=== PATIENT | male | born 1955 | race Caucasian/White ===

== ENCOUNTER 2019-10-28 11:58 | Inpatient (IN) | payer BC, SELFPAY ==
[~2019-10-28] VITALS: Ht 170.2 cm; Wt 71.2 kg
[2019-10-28 12:06] VITALS: BP 121/78
[2019-10-28] MEDS ORDERED: NACL 0.9% 1,000 ML IV ONE ×2 (12:30→15:25)
[2019-10-28] MEDS ORDERED: ONDANSETRON 4 MG/2 ML VIAL IVP ONE ×2 (12:30→15:25)
[2019-10-28 12:51] LABS: HEMATOCRIT 47.8 % (36-52); HEMOGLOBIN 16.7 g/dL (12.0-18.0); MEAN CORPUSCULAR HEMOGLOBIN 32 pg (27-31); MEAN CORPUSCULAR HGB CONC 35 g/dL (33-37); MEAN CORPUSCULAR VOLUME 92.7 fL (80-94); PLATELET COUNT (AUTO) 194 K/uL (140-450); RED BLOOD CELL COUNT(AUTO) 5.16 MIL/uL (4.20-6.10); RED CELL DISTRIBUTION WIDTH 13.4 % (11.6-13.7); WHITE BLOOD COUNT (AUTO) 18.6 K/uL (4.8-10.8)
[2019-10-28 13:04] LABS: ANION GAP 18.5 (8-16); CREATININE 1.6 mg/dL (0.6-1.3); POTASSIUM 3.5 mmol/L (3.5-5.1)
[2019-10-28 13:11] LABS: ALBUMIN 4.5 g/dL (3.4-5.0); TOTAL BILIRUBIN 2.1 mg/dL (0.0-1.0)
[2019-10-28 13:13] LABS: LYMPHOCYTES % (MANUAL) 5 % (20-46); MONOCYTES % (MANUAL) 2 % (5-12)
[2019-10-28] MEDS ORDERED: cefTRIAXone 1,000 MG VIAL ONE (15:11)
[2019-10-28] MEDS ORDERED: ACETAMINOPHEN 325 MG TAB PO PRN (17:10)
[2019-10-28] MEDS ORDERED: DOCUSATE SODIUM 100 MG GELCAP PO PRN (17:10)
[2019-10-28] MEDS ORDERED: MAG SULF 2000 MG/WATER PREMIX 50 ML IV PRN (17:10)
[2019-10-28] MEDS ORDERED: LORazepam 2 MG/ML VIAL IVP PRN (17:10)
[2019-10-28] MEDS ORDERED: MORPHINE SULFATE 2 MG/ML SYR IVP PRN (17:10)
[2019-10-28] MEDS ORDERED: ZOLPIDEM 10 MG TAB PO PRN (17:10)
[2019-10-28] MEDS ORDERED: POTASSIUM CHLORIDE 10 MEQ TABER PO PRN (17:10)
[2019-10-28] MEDS: PANTOPRAZOLE 40 MG INJ VIAL IVP SCH (17:35)
[2019-10-28 18:08] LABS: APPEARANCE,URINE SL CLOUDY (CLEAR); BILIRUBIN,URINE NEGATIVE (NEGATIVE); BLOOD, URINE TRACE-I (NEGATIVE); COLOR,URINE YELLOW (YELLOW); LEUKOCYTE ESTERASE ,URINE NEGATIVE (NEGATIVE); NITRITE, URINE NEGATIVE (NEGATIVE); UGLUCOSE 1+ (NEGATIVE)
[2019-10-28] MEDS ORDERED: DEXTROSE 50% 50 ML SYR IVP PRN (18:10)
[2019-10-28 18:32] LABS: OTHER CASTS, URINE WBC CASTS 1+ /LPF (None Seen); RBC,URINE 0-5 /HPF (0-5)
[2019-10-28] MEDS: INSULIN LISPRO SLIDING SCALE 100 UNITS/ML VIAL SUBQ PRN (21:36)
[2019-10-28] MEDS: BLOOD GLUCOSE MONITORING 1 DEV DEV FS SCH (21:36)
[2019-10-28] MEDS: DEXT 5% /NACL 0.9% 1,000 ML IV SCH (21:37)
[2019-10-28 21:38] VITALS: BP 122/73
[2019-10-28] MEDS: ONDANSETRON 4 MG/2 ML VIAL IVP PRN (21:41)
[2019-10-29 01:00] VITALS: BP 142/79
[2019-10-29] MEDS: ONDANSETRON 4 MG/2 ML VIAL IVP PRN (05:27)
[2019-10-29 05:30] VITALS: BP 147/84
[2019-10-29] MEDS: DEXT 5% /NACL 0.9% 1,000 ML IV SCH (06:18)
[2019-10-29] MEDS: BLOOD GLUCOSE MONITORING 1 DEV DEV FS SCH ×4 (06:18→21:15)
[2019-10-29] MEDS: INSULIN LISPRO SLIDING SCALE 100 UNITS/ML VIAL SUBQ PRN ×2 (06:37→17:31)
[2019-10-29 07:14] LABS: ANION GAP 15.6 (8-16); CREATININE 1.1 mg/dL (0.6-1.3); POTASSIUM 3.6 mmol/L (3.5-5.1)
[2019-10-29 07:41] LABS: ALBUMIN 3.7 g/dL (3.4-5.0); BILIRUBIN,DIRECT 0.2 mg/dL (0.0-0.3); TOTAL BILIRUBIN 1.5 mg/dL (0.0-1.0)
[2019-10-29 08:00] VITALS: BP 140/80
[2019-10-29] MEDS: PANTOPRAZOLE 40 MG INJ VIAL IVP SCH (09:05)
[2019-10-29 10:36] LABS: BASOPHILS % (AUTO) 0.2 % (0.0-2.0); EOSINOPHILS % (AUTO) 0.1 % (0.0-4.0); HEMATOCRIT 41.5 % (36-52); HEMOGLOBIN 14.4 g/dL (12.0-18.0); LYMPHOCYTES # (AUTO) 1.3 K/uL (2.0-11.5); LYMPHOCYTES % (AUTO) 11.9 % (20.5-51.1); MEAN CORPUSCULAR HEMOGLOBIN 32 pg (27-31); MEAN CORPUSCULAR HGB CONC 35 g/dL (33-37); MEAN CORPUSCULAR VOLUME 93.2 fL (80-94); MONOCYTES # (AUTO) 0.9 K/uL (0.8-1.0); NEUTROPHILS # (AUTO) 8.6 K/uL (1.8-7.7); NEUTROPHILS % (AUTO) 79.8 % (42.2-75.2); PLATELET COUNT (AUTO) 156 K/uL (140-450); RED BLOOD CELL COUNT(AUTO) 4.46 MIL/uL (4.20-6.10); RED CELL DISTRIBUTION WIDTH 13.7 % (11.6-13.7); WHITE BLOOD COUNT (AUTO) 10.8 K/uL (4.8-10.8)
[2019-10-29] MEDS: POTASSIUM CHL 20 MEQ/D5-1/2NS 1,000 ML IV SCH ×3 (14:00→22:44)
[2019-10-29 16:00] VITALS: BP 140/60
[2019-10-29] MEDS: METOCLOPRAMIDE 10 MG/2 ML INJ VIAL IVP SCH (17:30)
[2019-10-30] VITALS: BP 107/65
[2019-10-30] MEDS: NACL 0.9% 1,000 ML IV SCH ×2 (00:11→13:43)
[2019-10-30] MEDS: BLOOD GLUCOSE MONITORING 1 DEV DEV FS SCH ×2 (07:05→11:40)
[2019-10-30] MEDS: METOCLOPRAMIDE 10 MG/2 ML INJ VIAL IVP SCH ×2 (07:05→11:50)
[2019-10-30 07:54] LABS: ANION GAP 19.1 (8-16); CARBON DIOXIDE 22.4 mmol/L (21-32); POTASSIUM 3.5 mmol/L (3.5-5.1)
[2019-10-30 08:00] VITALS: BP 117/72
[2019-10-30] MEDS: PANTOPRAZOLE 40 MG INJ VIAL IVP SCH (08:33)
[2019-10-30 10:39] LABS: BASOPHILS % (AUTO) 0.6 % (0.0-2.0); EOSINOPHILS % (AUTO) 0.2 % (0.0-4.0); HEMATOCRIT 40.5 % (36-52); HEMOGLOBIN 14.1 g/dL (12.0-18.0); LYMPHOCYTES # (AUTO) 1.5 K/uL (2.0-11.5); LYMPHOCYTES % (AUTO) 20.5 % (20.5-51.1); MEAN CORPUSCULAR HEMOGLOBIN 33 pg (27-31); MEAN CORPUSCULAR HGB CONC 35 g/dL (33-37); MEAN CORPUSCULAR VOLUME 93.1 fL (80-94); MONOCYTES # (AUTO) 0.6 K/uL (0.8-1.0); MONOCYTES % (AUTO) 8.6 % (1.7-9.3); NEUTROPHILS # (AUTO) 5.3 K/uL (1.8-7.7); NEUTROPHILS % (AUTO) 70.1 % (42.2-75.2); PLATELET COUNT (AUTO) 147 K/uL (140-450); RED BLOOD CELL COUNT(AUTO) 4.35 MIL/uL (4.20-6.10); RED CELL DISTRIBUTION WIDTH 13.3 % (11.6-13.7); WHITE BLOOD COUNT (AUTO) 7.6 K/uL (4.8-10.8)
[2019-10-30] MEDS ORDERED: metFORMIN 500 MG TAB PO SCH (12:40)
[2019-10-30] MEDS ORDERED: NACL 0.9% 1,000 ML IV SCH (12:40)
[2019-10-30] MEDS ORDERED: lisinopriL 5 MG TAB PO SCH (12:40)
[2019-10-30] MEDS ORDERED: LISI-424 PO (12:43)
[2019-10-30] MEDS ORDERED: METF500T PO (12:43)
[2019-10-30] MEDS ORDERED: OMEP20TC12 PO (12:43)
[2019-10-30 15:54] LABS: BARBITURATE, URINE NEGATIVE ng/ml (NEG <=200); BENZODIAZEPINE, URINE NEGATIVE ng/mL (NEG <=200); CANNABINOID, URINE POSITIVE ng/mL (NEG <=50); COCAINE, URINE NEGATIVE ng/mL (NEG <=300); OPIATE, URINE NEGATIVE ng/mL (NEG <=2000); PHENCYCLIDINE SCREEN,URINE NEGATIVE ng/mL (NEG <=25)
== END 2019-10-30 14:55 | disposition home or self-care (01) | DRG 871 ==
LOC: MED 11:58 → MMU 17:03
PROVIDERS: ADMIT General Practice; ATTEND General Practice
DX: A41.9 Sepsis, unspecified organism (principal); N17.0 Acute kidney failure with tubular necrosis; E86.0 Dehydration; F12.90 Cannabis use, unspecified, uncomplicated; K21.9 Gastro-esophageal reflux disease without esophagitis; Z20.828 Contact with and (suspected) exposure to other viral communicable diseases; E80.6 Other disorders of bilirubin metabolism; A08.4 Viral intestinal infection, unspecified; E11.65 Type 2 diabetes mellitus with hyperglycemia; N28.1 Cyst of kidney, acquired; Z87.891 Personal history of nicotine dependence
CPT/HCPCS: 36415; 71045; 76705; 80048; 80053; 80076; 80305; 81001; 82948; 83036; 83605; 83690; 83735; 85025; 87040; 87081; 87086; 96361; 96365; 96375; 96376; 99285; C9113; J0696; J1815; J2405; J2765; J7030; Q0092; U0003-CS